=== PATIENT | female | born 1945 | race Caucasian/White ===

== ENCOUNTER 2016-07-06 11:02 | Emergency (ER) | payer MEDICARE, OTHER ==
--- OUTSIDE RECORDS SUMMARY | 2016-07-06 12:06 | XMS REPORT | Continuity of Care Document ---
:1945 Author Organization [facility] ([facility]) Address [address] [place] [address] Phone [phone] Care Team Providers Name Role Phone Provider, No-Primary Care Primary Care Provider Unavailable Source Comments This disclosure is being made pursuant to the Care Everywhere program, applicable federal and state laws, and may not contain all informaitonavailable regarding this patient.[facility] ([facility]) Active Allergies and Adverse Reactions No Active Allergies Current Medications Not on file Active Problems Problem Noted Date Open fracture of phalanx or phalanges of hand, unspecified 06/08/2004 Social History Tobacco Use Types Packs/Day Years Used Date Never Assessed Plan of Care Health Maintenance Due Date Last Done Comments HCV Screening 1945 Hepatitis B Vaccine (1 of 3 - Primary Series) 1945 Tdap Vaccine 11/08/1958 Lipid Disorder Screening 11/08/1965 Td Vaccine 11/08/1965 Mammogram 1987 Colonoscopy 11/08/1997 Zoster Vaccine 2007 Osteoporosis Screening (DXA Bone Density) 11/08/2012 Pneumococcal Vaccine (1 of 2 - PCV13) 11/08/2012 Influenza Vaccine: Seasonal (#1) 12/20/2015 Results from Last 3 Months Not on file
--- NOTE | 2016-07-06 12:12 | ERNOTE ---
Syncope ER HPI Date of Service: 07/06/16 Stated Complaint: SYNCOPAL EPISODES Time Seen by Provider: 07/06/16 11:54 Source: patient, RN notes reviewed, past records Exam Limitations: no limitations Immunizations: IMMUNIZATION HX Immunizations Up to Date Yes History of Influenza Vaccine Yes Hx Pneumococcal Vaccination No Allergies/Adverse Reactions: Allergies No Known Allergies Allergy (Verified 07/06/16 11:17) Home Medications: HOME MEDICATIONS Diclofenac Sodium [Voltaren] 50 mg PO BID 10/26/13 [Last Taken Unknown] Hydrochlorothiazide 25 mg PO DAILY 10/26/13 [Last Taken Unknown] Simvastatin 20 mg PO HS 10/26/13 [Last Taken Unknown] Acetaminophen [Tylenol] 1,000 mg PO Q4H PRN 03/22/16 [Last Taken Unknown] Aspirin [Aspirin Enteric Coated] 81 mg PO DAILY 03/22/16 [Last Taken Unknown] Calcium Carbonate/Vitamin D3 [Caltrate-600 with Vit D Tab] 1 each PO DAILY 03/22 [Last Taken Unknown] Fluconazole [Diflucan] 150 mg PO DAILY 03/22/16 [Last Taken Unknown] Gingko Biloba 60 mg PO DAILY 03/22/16 [Last Taken Unknown] Lansoprazole [Prevacid] 30 mg PO BID 03/22/16 [Last Taken Unknown] Legatrim 1 tab PO HS 03/22/16 [Last Taken Unknown] Levothyroxine Sodium [Synthroid] 100 mcg PO DAILY 03/22/16 [Last Taken Unknown] Quinapril HCl [Accupril] 10 mg PO BID 03/22/16 [Last Taken Unknown] Sennosides/Docusate Sodium [Senokot-S] 1 tab PO BID 03/22/16 [Last Taken Unknown ] traMADol HCL [Ultram] 50 mg PO BID PRN 03/22/16 [Last Taken Unknown] Docusate Sodium [Colace] 100 mg PO DAILY 07/06/16 [Last Taken Unknown] HYDROcodone/ACETAMINOPHEN [[place] 5-325] 1 tab PO Q4H PRN 07/06/16 [Last Taken Unknown] Ibuprofen [Motrin] 200 - 400 mg PO Q4H PRN 07/06/16 [Last Taken Unknown] Multivitamin [One Daily Essential] 1 each PO DAILY 07/06/16 [Last Taken Unknown] Zinc [Zinc Chelated] 50 mg PO DAILY 07/06/16 [Last Taken Unknown] - History of Present Illness Narrative: 70 y/o female sent to the ED in a wheelchair from the walk in clinic for evaluation of a near syncopal episode that occurred 5 days ago. She presented there for a sore throat. She nearly passed out while having abdominal cramping during the last evening of 07/01. She was standing near her bed and slumped over on it to avoid falling. She states she did not lose consciousness. She has had no further episodes of this since then. She began having a sore throat 3 days ago. She has a grandchild with strep throat. She also reports nasal congestion and a cough, but does not feel that these symptoms are worse than her usual. Prior Episodes: Present: no prior history Symptoms prior to episode: Present: other - abdominal pain Activity at time of episode: Present: standing Character of event: Present: no loss of consciousness, almost passed out. Absent: incontinent, confused after event Location of Injury: Present: none Current Symptoms: Present: back to normal Prior Treament: Denies: similar symptoms before Review of Systems - Review of Systems Constitutional: Absent: fever, chills EYE: Present: no symptoms reported ENT: Present: nose congestion, nasal drainage, sore throat. Absent: ear pain, throat swelling Respiratory: Present: cough. Absent: shortness of breath, wheezing Cardiology: Absent: chest pain, palpitations, edema Gastrointestinal/Abdominal: Absent: nausea, vomiting, diarrhea, abdominal pain, eating less, drinking less Genitourinary: Absent: frequency, dysuria Musculoskeletal: Present: no symptoms reported Skin: Present: no symptoms reported Neurological: Absent: headache, dizziness/light-headedness, weakness, numbness, tingling Endocrine: Present: no symptoms reported Hematologic/Lymphatic: Present: no symptoms reported Psych: Absent: anxiety, depressed - Patient's Past Medical History Patient History - Medical: Arthritis, Hypothyroidism, Osteoarthritis, Other - Diverticulitis Patient History - Cardiac/Respiratory: Hypertension, Hyperlipidemia, Other Patient History - Cancer: No Hx of Cancer Patient History - Surgical Procedures: Cholecystectomy, Colonoscopy, Hysterectomy, Total Knee Replacement, T & A, Other - Bilateral shoulder surgeries, Thyroid surgery, Cardiac cath in 2000 LMP (females 10-50): Menopausal - Social History Living Situations: significant other Does anyone smoke in the home?: Yes Smoking Status: Never smoker Alcohol Use: occasionally Drug Use: none - Immunizations Immunizations Up to Date: Yes Hx Pneumococcal Vaccination: No History of Influenza Vaccine: Yes Physical Exam - Physical Exam General Appearance: Present: wd/wn, alert, no apparent distress Eye Exam: Normal inspection: bilateral, PERRL: bilateral, EOMI: bilateral Ears, Nose, Throat: Present: hearing grossly normal, nasal congestion, pharyngeal erythema. Absent: abnormal TM (R), abnormal TM (L), sinus pain/ drainage, pharyngeal swelling Neck: Present: normal inspection, nontender, supple Respiratory: Present: no respiratory distress, normal breath sounds, no accessory muscle use, lungs clear Cardiovascular/Chest: Present: regular rate, rhythm, no murmur, normal peripheral pulses Extremity Exam: Present: normal inspection, no edema Neurological Exam: Present: alert, oriented, normal mood/affect, no motor/ sensory deficits Skin Exam: Present: normal color, warm/dry ED Progress - Results and Orders Patient's Lab Results:: I have reviewed the patient's lab results. - Vital Signs Patient's Vital Signs:: I have reviewed the patient's vital signs. Vital Signs: Vital Signs 07/06/16 07/06/16 11:11 11:56 Temperature 36.1 C L Pulse Rate 82 82 Respiratory 14 Rate Blood Pressure 127/76 147/80 O2 Sat by Pulse 94 Oximetry - EKG EKG: NSR, nonspecific ST T wave changes EKG read: Reviewed by me - X-Ray X-Ray #1 X-Ray: chest Interpretation: Reviewed by me X-ray Comments: No acute cardiopulmonary process noted - Progress/Reassessment Chief Complaint: Syncopal Episode Progress:: Unchanged Plan - Plan Plan: Work-up unremarkable, patient discharged to home, discussed f/u for persistent or worsening symptoms Departure Clinical Impression: Near syncope, Sore throat (viral) - Departure Disposition: Home self-care Condition: Stable Instructions: Sore Throat, [id number], Syncope, [id number] Additional Instructions: See your doctor if sore throat persists, return to ER for further syncopal episodes Continue your routine medications Referrals: Morena Tinoco MD [Primary Care Provider] -
[2016-07-06 12:29] LABS: Hematocrit 45.6 % (37.0-47.0); Hemoglobin 14.9 gm/dL (12.5-16.0); Mean Cell Volume 81.7 fl (78-100); Mean Corpuscular Hemoglobin 26.7 pg (27-31); Mean Corpuscular Hgb Conc 32.7 g/dl (32-36); Mean Platelet Volume 9.8 fl (6.0-9.5); Neutrophil # 3.6 K/mm3 (1.3-6.0); Neutrophil % 59.9 % (42-75.0); Platelet Count 161 K/mm3 (150-450); Red Blood Count 5.58 M/mm3 (4.2-5.4)
[2016-07-06 12:44] LABS: ALT 46 U/L (19-67); AST 26 U/L (0-48); Albumin * 3.6 gm/dl (3.4-5.0); Alkaline Phosphatase * 56 U/L (50-170); Anion Gap 11.2 mmol/L (6.8-13.8); BUN/Creatinine Ratio 31.6 (9.0-21.6); Bilirubin, Total 0.3 mg/dL (0.0-1.1); Blood Urea Nitrogen 31 mg/dL (3-23); Ca. Corrected For Albumin 9.5 mg/dL (8.4-10.2); Calcium * 9.5 mg/dL (7.9-10.9); Carbon Dioxide 30.6 mmol/L (24-32.6); Chloride 106 mmol/L (97-106); Glucose * 99 mg/dL (70-110); Potassium 3.8 mmol/L (3.4-4.6); Sodium 144 mmol/L (132-142); Total Protein 6.9 gm/dL (6.2-8.2); Troponin I Less than 0.017 ng/ml (0.00-0.10)
[2016-07-06 13:20] VITALS: BP 145/88
== END 2016-07-06 13:21 | disposition home or self-care (01) ==
LOC: ER 11:02
DX: R55 Syncope and collapse (principal); J02.9 Acute pharyngitis, unspecified; Z77.22 Contact with and (suspected) exposure to environmental tobacco smoke (acute) (chronic); E78.5 Hyperlipidemia, unspecified; I10 Essential (primary) hypertension; E03.9 Hypothyroidism, unspecified; M19.90 Unspecified osteoarthritis, unspecified site

== ENCOUNTER 2016-07-07 22:30 | Emergency (ER) | payer MEDICARE, OTHER ==
--- NOTE | 2016-07-08 01:08 | ERNOTE ---
Abdominal HPI - Narrative Date of Service: 07/07/16 - General Chief Complaint: Abdominal Pain Time Seen by Provider: 07/08/16 01:07 Source: patient Exam Limitations: no limitations - Immun/Allergies/Home Medications Immunizatons: IMMUNIZATION HX Immunizations Up to Date Yes History of Influenza Vaccine Yes Hx Pneumococcal Vaccination No Allergies/Adverse Reactions: Allergies No Known Allergies Allergy (Verified 07/07/16 23:24) Home Medications: HOME MEDICATIONS Diclofenac Sodium [Voltaren] 50 mg PO BID 10/26/13 [Last Taken Unknown] Hydrochlorothiazide 25 mg PO DAILY 10/26/13 [Last Taken Unknown] Simvastatin 20 mg PO HS 10/26/13 [Last Taken Unknown] Acetaminophen [Tylenol] 1,000 mg PO Q4H PRN 03/22/16 [Last Taken Unknown] Aspirin [Aspirin Enteric Coated] 81 mg PO DAILY 03/22/16 [Last Taken Unknown] Calcium Carbonate/Vitamin D3 [Caltrate-600 with Vit D Tab] 1 each PO DAILY 03/22 [Last Taken Unknown] Fluconazole [Diflucan] 150 mg PO DAILY 03/22/16 [Last Taken Unknown] Gingko Biloba 60 mg PO DAILY 03/22/16 [Last Taken Unknown] Lansoprazole [Prevacid] 30 mg PO BID 03/22/16 [Last Taken Unknown] Legatrim 1 tab PO HS 03/22/16 [Last Taken Unknown] Levothyroxine Sodium [Synthroid] 100 mcg PO DAILY 03/22/16 [Last Taken Unknown] Quinapril HCl [Accupril] 10 mg PO BID 03/22/16 [Last Taken Unknown] Sennosides/Docusate Sodium [Senokot-S] 1 tab PO BID 03/22/16 [Last Taken Unknown ] traMADol HCL [Ultram] 50 mg PO BID PRN 03/22/16 [Last Taken Unknown] Docusate Sodium [Colace] 100 mg PO DAILY 07/06/16 [Last Taken Unknown] HYDROcodone/ACETAMINOPHEN [[place] 5-325] 1 tab PO Q4H PRN 07/06/16 [Last Taken Unknown] Ibuprofen [Motrin] 200 - 400 mg PO Q4H PRN 07/06/16 [Last Taken Unknown] Multivitamin [One Daily Essential] 1 each PO DAILY 07/06/16 [Last Taken Unknown] Zinc [Zinc Chelated] 50 mg PO DAILY 07/06/16 [Last Taken Unknown] Ondansetron [Zofran Odt] 8 mg PO Q8H PRN #15 tab 07/08/16 [Last Taken Unknown] - History of Present Illness Narrative: Presents with c/o sudden onset of periumbilical abdominal pain about 3 hours [employer] , associated with nausea. Pt claims pain resolved after arrival in ER. Timing: gone now Quality: mild Activities at Onset: rest Associated Symptoms: Present: nausea Prior Treatment: Present: recently seen Review of Systems - Review of Systems Constitutional: Present: no symptoms reported EYE: Present: no symptoms reported ENT: Present: no symptoms reported Respiratory: Present: no symptoms reported Cardiology: Present: no symptoms reported Gastrointestinal/Abdominal: Present: nausea, abdominal pain. Absent: diarrhea, constipation, eating less, drinking less Genitourinary: Present: no symptoms reported Musculoskeletal: Present: no symptoms reported Skin: Present: no symptoms reported Neurological: Present: no symptoms reported Endocrine: Present: no symptoms reported Hematologic/Lymphatic: Present: no symptoms reported Psych: Present: no symptoms reported All Other Systems: All systems neg except as marked - Patient's Past Medical History Patient History - Medical: Arthritis, Hypothyroidism, Osteoarthritis, Other Patient History - Cardiac/Respiratory: Hypertension, Hyperlipidemia, Other Patient History - Cancer: No Hx of Cancer Patient History - Surgical Procedures: Cholecystectomy, Colonoscopy, Hysterectomy, Total Knee Replacement, T & A, Other Patient History - Other: None LMP (females 10-50): Menopausal - Social History Living Situations: home Psych History: No pertinent hx Does anyone smoke in the home?: Yes Smoking Status: Never smoker Alcohol Use: rarely Drug Use: none - Immunizations Immunizations Up to Date: Yes Hx Pneumococcal Vaccination: No History of Influenza Vaccine: Yes Physical Exam - Physical Exam General Appearance: Present: wd/wn, alert, no apparent distress Neck: Present: normal inspection, nontender Respiratory: Present: no respiratory distress, normal breath sounds, no accessory muscle use, chest nontender, lungs clear Cardiovascular/Chest: Present: regular rate, rhythm, no murmur, normal peripheral pulses Gastrointestinal/Abdominal: Present: normal bowel sounds, nontender, nondistended, soft, no organomegaly Neurological Exam: Present: alert, oriented Skin Exam: Present: normal color, warm/dry ED Progress - Results and Orders Patient's Lab Results:: I have reviewed the patient's lab results. - Vital Signs Patient's Vital Signs:: I have reviewed the patient's vital signs. Vital Signs: Vital Signs 07/07/16 07/08/16 23:19 00:55 Temperature 36.1 C L 36.1 C L Pulse Rate 81 74 Respiratory 18 18 Rate Blood Pressure 127/73 122/74 O2 Sat by Pulse 96 97 Oximetry - Progress/Reassessment Chief Complaint: Abdominal Pain Progress:: Pain free at discharge Departure - Departure Clinical Impression: Nausea Abdominal pain Qualifiers: Abdominal location: periumbilical Qualified Code(s): R10.33 - Periumbilical pain Disposition: Home self-care Condition: Good Instructions: Nausea, Adult Print Language: Guatemalan Referrals: Morena Tinoco MD [Primary Care Provider] - Prescriptions: Ondansetron [Zofran Odt] 8 mg PO Q8H PRN #15 tab PRN Reason: Nausea
--- OUTSIDE RECORDS SUMMARY | 2016-07-08 01:32 | XMS REPORT | Continuity of Care Document ---
:1945 Author Organization [facility] ([facility]) Address [place] [address] Phone [phone] Care Team Providers Name Role Phone Provider, No-Primary Care Primary Care Provider Unavailable Source Comments This disclosure is being made pursuant to the Care Everywhere program, applicable federal and state laws, and may not contain all informaitonavailable regarding this patient.[facility] ([facility]) Active Allergies and Adverse Reactions No Active [...]
[2016-07-08] MEDS ORDERED: ONDANSETRON 4 MG TAB.RAPDIS PO ONE (01:42)
[2016-07-08 01:59] LABS: Hematocrit 46.7 % (37.0-47.0); Hemoglobin 15.4 gm/dL (12.5-16.0); Mean Cell Volume 80.8 fl (78-100); Mean Corpuscular Hemoglobin 26.6 pg (27-31); Mean Platelet Volume 9.4 fl (6.0-9.5); Neutrophil % 78.6 % (42-75.0); Platelet Count 159 K/mm3 (150-450); Red Blood Count 5.78 M/mm3 (4.2-5.4); Red Cell Distribution Width 14.1 % (11.5-14.0); White Blood Count 12.7 K/mm3 (4.0-10.5)
[2016-07-08] MEDS ORDERED: ONDANSETRON 4 MG TAB.RAPDIS ONE (02:14)
[2016-07-08 02:16] LABS: Albumin * 3.7 gm/dl (3.4-5.0); Anion Gap 11.6 mmol/L (6.8-13.8); BUN/Creatinine Ratio 25.8 (9.0-21.6); Bilirubin, Total 0.4 mg/dL (0.0-1.1); Ca. Corrected For Albumin 9.8 mg/dL (8.4-10.2); Calcium * 9.9 mg/dL (7.9-10.9); Carbon Dioxide 29.6 mmol/L (24-32.6); Potassium 4.2 mmol/L (3.4-4.6)
[2016-07-08 02:28] LABS: Urine Bilirubin Negative (NEGATIVE); Urine Blood Negative /ul (NEGATIVE); Urine Ketone 5 mg/dL (NEGATIVE); Urine Nitrite Negative (NEGATIVE); Urine Protein Negative (NEGATIVE); Urine Specific Gravity >=1.030 SP.GR. (1.005-1.010); Urine Urobilinogen Normal (NORMAL)
[2016-07-08 02:39] LABS: Urine Appearance Clear; Urine Color Yellow
[2016-07-08 02:40] LABS: Urine Bacteria None Seen; Urine RBC None Seen /hpf (0-5); Urine WBC None Seen /hpf (0-5)
[2016-07-08 03:05] VITALS: BP 124/72
== END 2016-07-08 03:27 | disposition home or self-care (01) ==
LOC: ER 22:30
DX: R10.33 Periumbilical pain (principal); R11.0 Nausea; E78.5 Hyperlipidemia, unspecified; E03.9 Hypothyroidism, unspecified; I10 Essential (primary) hypertension